=== PATIENT | female | born 1935 | race Caucasian/White ===

== ENCOUNTER 2017-11-19 23:22 | Emergency (ER) | payer MEDICARE, OTHER ==
[~2017-11-19] VITALS: Ht 154.9 cm; Wt 74.8 kg
[~2017-11-19 23:22] MED LIST: AMLO5TAB7 PO; HYDR-3343 PO; LISI40TA PO; METF850T10 PO
[2017-11-20] MEDS ORDERED: CLINDAMYCIN 300 MG CAPSULE PO ONE
[2017-11-20] MEDS ORDERED: LIDOCAINE-MPF 1%, 5ML ONE
[2017-11-20] MEDS ORDERED: ACETAMINOPHEN 325 MG TABLET PO ONE
[2017-11-20] MEDS ORDERED: CLINDAMYCIN 300 MG CAPSULE ONE (00:01)
[2017-11-20] MEDS ORDERED: ACETAMINOPHEN 325 MG TABLET ONE (00:01)
[2017-11-20 00:30] VITALS: BP 161/56
== END 2017-11-20 01:18 | disposition home or self-care (01) ==
LOC: ED 11-20 01:14
DX: K04.7 Periapical abscess without sinus (principal); I10 Essential (primary) hypertension; E11.9 Type 2 diabetes mellitus without complications
CPT/HCPCS: 41800; 99283

== ENCOUNTER 2017-12-02 01:57 | Inpatient (IN) | payer MEDICARE, OTHER ==
[~2017-12-02] VITALS: Ht 152.4 cm; Wt 74.2 kg
[2017-12-02] MEDS ORDERED: SODIUM CHLORIDE FLUSH 10ML SYR IVF ONE (07:30)
[2017-12-02 07:50] LABS: ALBUMIN 2.9 g/dL (3.4-5.0); ANION GAP 9 mmol/L (5-15); CALCIUM 8.1 mg/dL (8.5-10.1); CHLORIDE 110 mmol/L (98-107); CREATININE 0.72 mg/dL (0.55-1.02)
[2017-12-02 08:02] LABS: BASOPHILS # (AUTO) 0.08 x10^3/uL (0-0.1); BASOPHILS % (AUTO) 1 % (0-1); EOSINOPHILS # (AUTO) 0.02 x10^3/uL (0-0.4); EOSINOPHILS % (AUTO) 0 % (1-7); LYMPHOCYTES # (AUTO) 1.39 x10^3/uL (1-3.4); LYMPHOCYTES % (AUTO) 15 % (22-44); MD NO; MEAN CORPUSCULAR HEMOGLOBIN 31.7 pg (27.0-34.8); MEAN CORPUSCULAR HGB CONC 33.3 g/dL (32.4-35.8); MEAN CORPUSCULAR VOLUME 95.3 fL (80-100); MEAN PLATELET VOLUME 9.4 fL (7.4-10.4); MONOCYTES # (AUTO) 0.91 x10^3/uL (0.2-0.8); MONOCYTES % (AUTO) 10 % (2-9); NEUTROPHILS # (AUTO) 6.64 x10^3/uL (1.8-6.8); NEUTROPHILS % (AUTO) 73 % (42-75); PLATELET COUNT 191 x10^3/uL (130-400); RED BLOOD COUNT 3.64 x10^6/uL (3.82-5.3); RED CELL DISTRIBUTION WIDTH 14.4 % (9.6-15.2)
[2017-12-02] MEDS ORDERED: LIDOCAINE-MPF 1%, 5ML ONE (08:14)
[2017-12-02] MEDS ORDERED: ASPIRIN 325 MG TABLET EC PO PRN (08:30)
[2017-12-02] MEDS ORDERED: ONDANSETRON ODT 4 MG PO PRN (08:30)
[2017-12-02] MEDS ORDERED: KETOROLAC 30 MG/1 ML IV PRN (08:30)
[2017-12-02] MEDS ORDERED: POLYETHYLENE GLYCOL 17 GM PACKET PO PRN (08:30)
[2017-12-02] MEDS ORDERED: hydrALAzine 20 MG/ML, 1ML IVPush PRN (08:30)
[2017-12-02] MEDS ORDERED: ACETAMINOPHEN 325 MG TABLET PO PRN (08:30)
[2017-12-02] MEDS ORDERED: ONDANSETRON 2MG/ML, 2ML IVPush PRN (08:30)
[2017-12-02 11:12] VITALS: BP 159/66
[2017-12-02] MEDS: SODIUM CHLORIDE FLUSH 10ML SYR IVF SCH ×2 (11:31→22:02)
[2017-12-02 14:06] VITALS: BP 148/67
[2017-12-02] MEDS ORDERED: GLIP10TA13 PO (14:11)
[2017-12-02] MEDS ORDERED: CLIN300C8 PO (14:11)
[2017-12-02 20:48] VITALS: BP 147/68
[2017-12-02] MEDS ORDERED: DEXTROSE 50%, 50ML SYRINGE IVPush PRN (22:00)
[2017-12-02] MEDS ORDERED: GLUCAGON 1 MG IM PRN (22:00)
[2017-12-02] MEDS ORDERED: DEXTROSE 4 GM TAB.CHEW PO PRN (22:00)
[2017-12-02] MEDS: LISINOPRIL 20 MG TABLET PO SCH (22:02)
[2017-12-02] MEDS: AMLODIPINE 5 MG TABLET PO SCH (22:02)
[2017-12-02 23:19] LABS: MICROSCOPIC NOT IND
[2017-12-02 23:20] LABS: CULTURE INDICATED? NO
[2017-12-03 02:03] VITALS: BP 165/64
[2017-12-03] MEDS: INSULIN LISPRO 100 UNITS/ML, PEN SQ-INSULIN SCH ×4 (07:00→22:31)
[2017-12-03] MEDS: AMLODIPINE 5 MG TABLET PO SCH (08:27)
[2017-12-03] MEDS: SODIUM CHLORIDE FLUSH 10ML SYR IVF SCH ×2 (08:27→21:00)
[2017-12-03] MEDS: LISINOPRIL 20 MG TABLET PO SCH (08:27)
[2017-12-03 14:56] VITALS: BP 158/70
[2017-12-03 20:39] VITALS: BP 153/67
[2017-12-04 01:25] VITALS: BP 175/75
[2017-12-04] MEDS: INSULIN LISPRO 100 UNITS/ML, PEN SQ-INSULIN SCH ×4 (07:00→21:04)
[2017-12-04 07:29] VITALS: BP 167/71
[2017-12-04] MEDS: AMLODIPINE 5 MG TABLET PO SCH (07:50)
[2017-12-04] MEDS: LISINOPRIL 20 MG TABLET PO SCH (07:50)
[2017-12-04] MEDS: SODIUM CHLORIDE FLUSH 10ML SYR IVF SCH ×2 (07:51→21:03)
[2017-12-04] MEDS ORDERED: AMLODIPINE 5 MG TABLET PO SCH (09:30)
[2017-12-04] MEDS ORDERED: TEMPLATE NON-FORMULARY MED. (Lisinopril** 40 MG) PO SCH (09:30)
[2017-12-04 13:10] VITALS: BP 153/70
[2017-12-04 19:28] VITALS: BP 152/64
[2017-12-04] MEDS ORDERED: ACETAMINOPHEN 500 MG TABLET PO PRN (21:00)
[2017-12-05 01:53] VITALS: BP 131/62
[2017-12-05 05:15] LABS: BASOPHILS # (AUTO) 0.04 x10^3/uL (0-0.1); BASOPHILS % (AUTO) 1 % (0-1); EOSINOPHILS % (AUTO) 1 % (1-7); LYMPHOCYTES # (AUTO) 1.32 x10^3/uL (1-3.4); LYMPHOCYTES % (AUTO) 18 % (22-44); MD NO; MEAN CORPUSCULAR HEMOGLOBIN 32.6 pg (27.0-34.8); MEAN CORPUSCULAR HGB CONC 34.1 g/dL (32.4-35.8); MEAN CORPUSCULAR VOLUME 95.5 fL (80-100); MEAN PLATELET VOLUME 9.3 fL (7.4-10.4); MONOCYTES # (AUTO) 0.85 x10^3/uL (0.2-0.8); MONOCYTES % (AUTO) 11 % (2-9); NEUTROPHILS # (AUTO) 5.12 x10^3/uL (1.8-6.8); NEUTROPHILS % (AUTO) 69 % (42-75); PLATELET COUNT 200 x10^3/uL (130-400); RED CELL DISTRIBUTION WIDTH 14.1 % (9.6-15.2)
[2017-12-05] MEDS: INSULIN LISPRO 100 UNITS/ML, PEN SQ-INSULIN SCH ×3 (07:00→16:00)
[2017-12-05 07:14] VITALS: BP 146/74
[2017-12-05] MEDS: LISINOPRIL 20 MG TABLET PO SCH (07:54)
[2017-12-05] MEDS: AMLODIPINE 5 MG TABLET PO SCH (07:54)
[2017-12-05] MEDS: SODIUM CHLORIDE FLUSH 10ML SYR IVF SCH (07:57)
[2017-12-05 12:53] VITALS: BP 148/67
== END 2017-12-05 17:00 | DRG 553 ==
LOC: ED 02:49 → EDIP 07:24 → 4EST 09:30 → UNDODISIN 12-05 17:00
PROVIDERS: ADMIT Internal Medicine; ATTEND Hospitalist
PROC: 0S9D3ZZ Drainage of Left Knee Joint, Percutaneous Approach (ICD-10-PCS; principal; 2017-12-02)
DX: M25.062 Hemarthrosis, left knee (principal); E43 Unspecified severe protein-calorie malnutrition; L03.119 Cellulitis of unspecified part of limb; W01.0XXA Fall on same level from slipping, tripping and stumbling without subsequent striking against object, initial encounter; Y93.89 Activity, other specified; Y92.098 Other place in other non-institutional residence as the place of occurrence of the external cause; Y99.8 Other external cause status; E11.9 Type 2 diabetes mellitus without complications; G89.11 Acute pain due to trauma; I10 Essential (primary) hypertension; Z60.2 Problems related to living alone; Z88.0 Allergy status to penicillin; Z88.2 Allergy status to sulfonamides; Z88.7 Allergy status to serum and vaccine; Z68.31 Body mass index [BMI] 31.0-31.9, adult
CPT/HCPCS: 20610; 36415; 70450; 70486; 72125; 80048; 81003; 82040; 82962; 85025; G0378; J1815